=== PATIENT | male | born 1980 | race Caucasian/White ===

== ENCOUNTER 2018-10-14 12:54 | Emergency (ER) | payer OTHER ==
[2018-10-14 13:34] VITALS: RESP 20
[2018-10-14 13:39] VITALS: BP 159/103; PULSE 61; TEMP 97.9; O2SAT 99
[2018-10-14] MEDS ORDERED: DIPHENHYDRAMINE 50 MG/ML SOL IV ONE (13:51)
[2018-10-14] MEDS ORDERED: SODIUM CHLORIDE 0.9% 1000ML 1,000 ML IV ONE (13:51)
[2018-10-14] MEDS ORDERED: PROCHLORPERAZINE EDISYLATE 5 MG/ML SOL IV ONE (13:51)
[2018-10-14] MEDS ORDERED: KETOROLAC TROMETHAMINE 30 MG/ML SOL IV ONE (13:51)
[2018-10-14] MEDS ORDERED: SODIUM CHLORIDE 0.9% FLUSH 10 ML SOL IV PRN (14:00)
[2018-10-14] MEDS ORDERED: PROCHLORPERAZINE EDISYLATE 5 MG/ML SOL ONE (14:11)
[2018-10-14] MEDS ORDERED: DIPHENHYDRAMINE 50 MG/ML SOL ONE (14:12)
[2018-10-14] MEDS ORDERED: KETOROLAC TROMETHAMINE 30 MG/ML SOL ONE (14:13)
== END 2018-10-14 16:06 | disposition home or self-care (01) | DRG 103 ==
LOC: ED 12:54
DX: G43.909 Migraine, unspecified, not intractable, without status migrainosus (principal)
CPT/HCPCS: 96365; 96374; 96375; 99284; J0780; J1200; J1885